=== PATIENT | female | born 1965 | race Caucasian/White ===

== ENCOUNTER → 2019-01-24 10:42 | Outpatient (CLI) | payer OTHER, SELFPAY ==
--- NOTE | 2019-01-24 | DI.MG.S_ITS ---
BILATERAL DIGITAL SCREENING MAMMOGRAM 3D/2D WITH CAD: 01/24/2019 CLINICAL: Routine screening. Comparison is made to exams dated: 08/14/2015 mammogram, 03/13/2013 mammogram - [facility], and 04/15/2010 mammogram - [facility]. The tissue of both breasts is heterogeneously dense. This may lower the sensitivity of mammography. Current study was also evaluated with a Computer Aided Detection (CAD) system. No significant masses, calcifications, or other findings are seen in either breast. There has been no significant interval change. IMPRESSION: NEGATIVE There is no mammographic evidence of malignancy. A 1 year screening mammogram is recommended. This exam was interpreted at Station ID: [id number]. NOTE: For mammograms, a report in lay terms will be sent to the patient. Approximately 15% of breast malignancies will not be visualized mammographically. In the management of a palpable breast mass, a negative mammogram must not discourage biopsy of a clinically suspicious lesion. Electronically Signed By: Candie packer/ynes:01/24/2019 13:06:42 letter sent: Normal Exam ACR BI-RADS Category 1: Negative [id number]
== END ==
PROVIDERS: Family Provider Naturopath; PCP Naturopath; Visit Provider Naturopath
DX: Z12.31 Encounter for screening mammogram for malignant neoplasm of breast (principal)
CPT/HCPCS: 77063; 77067

== ENCOUNTER 2019-04-04 09:41 | Day surgery (SDC) | payer OTHER, SELFPAY ==
[2019-04-04 09:45] VITALS: BP 126/84; PULSE 92; RESP 16; TEMP 36.8; O2SAT 99; BMI 22.4
--- NOTE | 2019-04-04 10:56 | PM.HP.1 ---
History of Present Illness History of Present Illness Date Patient Seen: 04/04/19 Time Patient Seen: 10:57 Chief complaint: [id number] Narrative: 54-year-old woman presents for 1st ever screening colonoscopy., reports had a colonoscopy over 20 years ago for bleeding that was thought to eventually be from hemorrhoids. She is generally feeling No family history of colon or rectal cancers or polyps. No intestinal complaints Patient History Social History household members: spouse Family & Social History Social History: household members spouse Meds Home Medications and Allergies Home Medications Medication Instructions Recorded Confirmed Type CA PANTOTHENATE/FOLIC ACID/VIT 1 tab PO QDAY #0 02/28/13 History (MULTIVITAMIN) Fish Oil 4,000 mg PO QDAY #0 03/22/13 History Allergies Allergy/AdvReac Type Severity Reaction Status Date / Time BIRCH TREE Allergy Mild Uncoded 10/27/17 12:11 GRASS Allergy Mild Uncoded 10/27/17 12:11 HOUSEDUST Allergy Mild SNEEZING Uncoded 10/27/17 12:11 AND ITCHING Review of Systems Constitutional Constitutional: Denies fever(s) Eyes Eyes: Denies bulging eyes ENT Ears, Nose, Mouth, and Throat: No lip swelling Cardiovascular Cardiovascular: Denies generalize swelling Respiratory Respiratory: Denies stridor Gastrointestinal Gastrointestinal: Denies coffee ground emesis Musculoskeletal Musculoskeletal: Denies loss of height Integumentary/Breasts Skin/Breast: Denies wounds Neurologic Neurologic: Denies abnormal speech and Denies confusion Psychiatric Psychiatric: Denies confusion and Denies tactile hallucinations Endocrine Endocrine: Denies deepening of the voice Hematologic/Lymphatic Hematologic/Lymphatic: Denies lymphadenopathy Allergic/Immunologic Allergic/Immunologic: Denies lip swelling Exam Vital Signs (past 8 hours): - 04/04/19 09:45 Temperature 98.2 F Pulse Rate 92 H Respiratory Rate 16 Blood Pressure 126/84 Pulse Oximetry 99 Oxygen Delivery Method Room Air Const General: cooperative and healthy appearing Orientation: alert HENMT Head: normal to inspection Nose: nares normal Mouth: oral mucosae normal and lip normal Eyes Eyelids: eyelids normal Conjunctivae: conjunctivae normal Sclera: sclerae normal Neck Neck: supple and other (No thyromegally) Chest Chest: other (LCTAB , regular respiratory effort) Cardio Rhythm: regular rhythm Heart Sounds: S1 normal, S2 normal, no gallops, no murmurs and no rubs GI Other: Abdomen soft nontender nondistended Skin General: no rashes or lesions noted Neuro General: alert and awake Psych Appearance: grossly normal Affect: normal affect Assessment & Plan Assessment & Plan narrative: 54-year-old female presents for screening colonoscopy Risks and benefits discussed Risks including bleeding, perforation, , missed lesion, hypoxia all discussed. All questions answered Patient ready to proceed
--- NOTE | 2019-04-04 10:58 | PM.OP.ENDO ---
Operative Date/Time/Diagnoses Date of procedure: 04/04/19 Time of procedure: 11:32 Pre-op diagnosis: Colorectal cancer screening Post-op diagnosis: same Procedure & Clinicians Study performed: Screening colonoscopy-complete Same procedure as scheduled: Yes Indications: 54-year-old female whose last colonoscopy was over 20 years ago (this was for an episode of rectal bleeding that was ultimately diagnosed as hemorrhoids)presents for screening colonoscopy. No family history of colorectal cancers or polyps. Surgeon: Daniel Tilley Procedure Notes SCOAP/Timeout: Completed Procedure in detail: Patient was brought to the endoscopy suite, a time-out was completed she was sedated over the entire course of the procedure was 7 mg of midazolam and 20 micro g of fentanyl. A digital rectal exam was performed without lesions. 160 cm colonoscope was advanced through the folds of the rectum and colon until the cecum was reached. Of note the patient had a quite floppy redundant transverse colon that was difficult to navigate through. The cecum was identified via a appendiceal orifice as well as a prominent ileocecal valve. Colonoscope was then slowly withdrawn. Within the sigmoid colon there were multiple diverticuli with out evidence of active inflammation. No other lesions identified. Scope was retroflexed in the anus without lesions. Prep was adequate Scope withdrawal time: Eight Sedation minutes: 27 Specimen(s): none sent Complications: none Impression: 1. Diverticulosis -moderate Post-procedure Recommendations: Colonscopy in 10 years Plan for aftercare: PACU then home Follow up: weeks Disposition: PACU
[2019-04-04] MEDS: MIDAZOLAM 5 MG/5 ML VIAL IV (11:33)
[2019-04-04] MEDS: fentaNYL 250 MCG/5 ML INJ IV (11:33)
[2019-04-04 11:36] VITALS: BP 98/55; PULSE 70; RESP 14; TEMP 36; O2SAT 99
[2019-04-04 11:41] VITALS: BP 93/55; PULSE 62; RESP 14; O2SAT 99
[2019-04-04 11:45] VITALS: BP 89/54; PULSE 59; RESP 13; O2SAT 99
[2019-04-04 11:50] VITALS: BP 94/61; PULSE 54; RESP 14; O2SAT 100
[2019-04-04 12:10] VITALS: BP 106/64; PULSE 55; RESP 16; TEMP 36.2; O2SAT 99
== END 2019-04-04 12:20 | disposition home or self-care (01) ==
PROVIDERS: PCP Naturopath; Visit Provider Surgery
PROC: 0DJD8ZZ Inspection of Lower Intestinal Tract, Via Natural or Artificial Opening Endoscopic (ICD-10-PCS; CPT 45378; principal; 2019-04-04 10:45)
DX: Z12.11 Encounter for screening for malignant neoplasm of colon (principal); K57.30 Diverticulosis of large intestine without perforation or abscess without bleeding
CPT/HCPCS: 45378; 99152; J2250; J3010